=== PATIENT | male | born 1985 | race Caucasian/White ===

== ENCOUNTER 2018-12-06 17:23 | Emergency (ER) | payer BC ==
[2018-12-06 18:45] VITALS: BP 109/69
[2018-12-06] MEDS ORDERED: Cyclobenzaprine TAB* 10 MG PO ONE (19:08)
--- NOTE | 2018-12-06 19:16 | ED ---
Back Pain - HPI Summary HPI Summary: 33-year-old otherwise healthy male presents with chief complaint of back pain. He states that the pain began on his drive to work this morning which was approximately 1 hour. The back was stiff thereafter and is mostly fine if he is sitting but stiffens up and is painful when he stands. There is no pain down his legs and no numbness or weakness. He has no difficulty with bladder but has been constipated for the last several days. He he wonders if this has anything to do with his recent cough and cold symptoms that have been minor. He has been getting better from this. He is not taking any cough or cold medications now. - History of Current Complaint Chief Complaint: UCBackPain Stated Complaint: BACK PAIN Time Seen by Provider: 12/06/18 19:00 Hx Obtained From: Patient Pain Intensity: 9 - Allergies/Home Medications Allergies/Adverse Reactions: Allergies Allergy/AdvReac Type Severity Reaction Status Date / Time codeine Allergy Dizziness Verified 12/06/18 18:38 Home Medications: Home Medications Ibuprofen [Motrin Ib] 200 mg PO Q8HR PRN 12/06/18 [History Confirmed 12/06/18] PMH/Surg Hx/FS Hx/Imm Hx Previously Healthy: Yes Endocrine/Hematology History: Denies: Hx Diabetes, Hx Thyroid Disease Cardiovascular History: Denies: Hx Hypertension Respiratory History: Denies: Hx Asthma, Hx Chronic Obstructive Pulmonary Disease (COPD) GI History: Denies: Hx Ulcer - Surgical History Surgery Procedure, Year, and Place: DENTAL Infectious Disease History: No Infectious Disease History: Denies: Hx Hepatitis, Hx Human Immunodeficiency Virus (HIV), Traveled Outside the [place] in Last 30 Days - Family History Known Family History: Positive: None Negative: Cardiac Disease, Respiratory Disease - Social History Occupation: Employed Full-time Alcohol Use: Rare Substance Use Type: Reports: None Smoking Status (MU): Never Smoked Tobacco Review of Systems Constitutional: Negative Positive: Nasal Discharge. Negative: Sore Throat, Ear Ache Cardiovascular: Negative Positive: Cough - mild Gastrointestinal: Other - constipation Negative: Abdominal Pain Negative: burning, flank pain, hematuria, incontinence Positive: Myalgia, Decreased ROM. Negative: Arthralgia Negative: Weakness, Paresthesia, Numbness All Other Systems Reviewed And Are Negative: Yes Physical Exam Triage Information Reviewed: Yes Vital Signs On Initial Exam: Initial Vitals Temp Pulse Resp BP Pulse Ox 98.6 F 82 18 109/69 96 12/06/18 18:40 12/06/18 18:40 12/06/18 18:40 12/06/18 18:40 12/06/18 18:40 Vital Signs Reviewed: Yes Appearance: Positive: Well-Appearing, No Pain Distress, Well-Nourished Skin: Positive: Warm, Skin Color Reflects Adequate Perfusion, Dry Head/Face: Positive: Normal Head/Face Inspection Eyes: Positive: EOMI ENT: Positive: Pharynx normal, Nasal drainage, TMs normal Neck: Positive: Nontender Respiratory/Lung Sounds: Positive: Clear to Auscultation Cardiovascular: Positive: RRR Abdomen Description: Positive: Nontender, Soft Musculoskeletal: Positive: Other - Mild tenderness in the left paralumbar musculature. No limitation of range of motion. Patient states that he feels much better after deep palpation in the muscular region. Neurological: Positive: Sensory/Motor Intact, Reflexes Intact, Normal Gait, Other - 2+ patellar DTRs. Normal gait without antalgia. Able to bend and touch toes with some minor stiffness. Normal saddle sensation AVPU Assessment: Alert Diagnostics - Vital Signs Vital Signs Temp Pulse Resp BP Pulse Ox 12/06/18 18:40 98.6 F 82 18 109/69 96 - Laboratory Lab Statement: Any lab studies that have been ordered have been reviewed, and results considered in the medical decision making process. Back Pain Course/Dx - Course Course Of Treatment: Nurse's notes reviewed. Patient feels as though he is significantly better after taking ibuprofen prior to coming here and with deep palpation on my exam. His range of motion has returned. There is some concern about constipation which does not seem to be related. He has no disc symptoms at present. There is no pain down the legs. There is no numbness or weakness and normal gait. He was given a Flexeril here for home use and will continue on as needed muscle relaxation and NSAID at home. - Diagnoses Differential Diagnosis/HQI/PQRI: Positive: Cauda Equina Syndrome, Herniated Disc , Strain, Sprain Provider Diagnoses: Acute lumbar myofascial strain, Upper respiratory infection, acute, Acute constipation Discharge - Sign-Out/Discharge Documenting (check all that apply): Patient Departure All imaging exams completed and their final reports reviewed: No Studies - Discharge Plan Condition: Improved Disposition: HOME Prescriptions: Cyclobenzaprine TAB* [Flexeril 10 MG TAB*] 10 mg PO BID PRN #10 tab PRN Reason: muscle pain/stiffness Patient Education Materials: Constipation (ED), High Fiber Diet (ED), Low Back Strain (ED) Referrals: [facility] [Outside] [facility] [Outside] Additional Instructions: For the constipation high-fiber diet, natural fruit juices and continued Colace may help. If this does not help try 3 times daily MiraLAX. For the back pain continue ibuprofen, range of motion exercises, icing. skin care consultant may help if back pain persists. Return to the ER or urgent care with more severe pain, numbness or weakness in the legs, difficulty with bowel or bladder, significant pain down the legs or other concerns as discussed. Call to follow-up with the [facility] also, referral line for primary care physician was given. - Billing Disposition and Condition Condition: IMPROVED Disposition: Home - Attestation Statements Document Initiated by Suyapaibe: No
== END 2018-12-06 19:40 | disposition home or self-care (01) ==
LOC: UCEAST 17:23
DX: S39.012A Strain of muscle, fascia and tendon of lower back, initial encounter (principal); J06.9 Acute upper respiratory infection, unspecified; K59.00 Constipation, unspecified; Z88.5 Allergy status to narcotic agent; X58.XXXA Exposure to other specified factors, initial encounter; Y92.9 Unspecified place or not applicable
CPT/HCPCS: 99212; A9270-GY; G0463